=== PATIENT | male | born 1995 | race Caucasian/White ===

== ENCOUNTER 2016-09-14 01:56 | Emergency (ER) | payer BC, MEDICAID ==
[~2016-09-14] VITALS: Ht 182.9 cm; Wt 144.0 kg
--- OUTSIDE RECORDS SUMMARY | 2016-09-14 02:00 | XMS REPORT | Continuity of Care Document ---
Author Author [facility] Address Unknown Phone Unavailable Allergies Medications Problems Date Dx Coded Attending Type Code Diagnosis Diagnosed By 05/02/2014 WILGERS, JHONY L SUPERVISOR DRAWING Ot 530.81 05/02/2014 WILGERS, JHONY L SUPERVISOR DRAWING Ot 787.01 05/02/2014 WILGERS, JHONY L SUPERVISOR DRAWING Ot 796.2 05/08/2014 WILGERS, JHONY L SUPERVISOR DRAWING Ot 530.81 05/08/2014 WILGERS, JHONY L SUPERVISOR DRAWING Ot 787.01 05/08/2014 WILGERS, JHONY L SUPERVISOR DRAWING Ot 796.2 06/29/2014 WILGERS, JHONY L SUPERVISOR DRAWING Ot 530.81 06/29/2014 WILGERS, JHONY L SUPERVISOR DRAWING Ot 787.01 06/29/2014 WILGERS, JHONY L SUPERVISOR DRAWING Ot 796.2 07/27/2014 WILGERS, JHONY L SUPERVISOR DRAWING Ot 530.81 07/27/2014 WILGERS, JHONY L SUPERVISOR DRAWING Ot 787.01 07/27/2014 WILGERS, JHONY L SUPERVISOR DRAWING Ot 796.2 08/22/2014 WILGERS, JHONY L SUPERVISOR DRAWING Ot 530.81 08/22/2014 WILGERS, JHONY L SUPERVISOR DRAWING Ot 787.01 08/22/2014 WILGERS, JHONY L SUPERVISOR DRAWING Ot 796.2 08/22/2014 Ot 780.79 08/22/2014 Ot V77.91 08/26/2014 WILGERS, JHONY L SUPERVISOR DRAWING Ot 530.81 08/26/2014 WILGERS, JHONY L SUPERVISOR DRAWING Ot 787.01 08/26/2014 WILGERS, JHONY L SUPERVISOR DRAWING Ot 796.2 08/26/2014 Ot 780.79 08/26/2014 Ot V77.91 09/10/2014 WILGERS, JHONY L SUPERVISOR DRAWING Ot 786.2 09/10/2014 WILGERS, JHONY L SUPERVISOR DRAWING Ot 786.2 10/18/2014 WILGERS, JHONY L SUPERVISOR DRAWING Ot 530.81 10/18/2014 WILGERS, JHONY L SUPERVISOR DRAWING Ot 787.01 10/18/2014 [facility] JH[facility] SUPERVISOR DRAWING Ot 796.2 10/18/2014 Ot 780.79 10/18/2014 Ot V77.91 10/18/2014 [facility], JHONY L SUPERVISOR DRAWING Ot 786.2 10/18/2014 [facility], JHONY L SUPERVISOR DRAWING Ot 786.2 11/09/2014 KENISHA ONEILL, MIKAEL R Ot 928.20 11/09/2014 KENISHA ONEILL, MIKAEL R Ot 928.21 11/09/2014 KENISHA ONEILL, MIKAEL R Ot E928.9 11/19/2014 [facility], JHONY L SUPERVISOR DRAWING Ot 530.81 11/19/2014 [facility], JHONY L SUPERVISOR DRAWING Ot 787.01 11/19/2014 [facility], JHONY L SUPERVISOR DRAWING Ot 796.2 11/19/2014 Ot 780.79 11/19/2014 Ot V77.91 11/19/2014 [facility], JHONY L SUPERVISOR DRAWING Ot 786.2 11/19/2014 [facility], JHONY L SUPERVISOR DRAWING Ot 786.2 11/19/2014 KENISHA ONEILL, MIKAEL R Ot 928.20 11/19/2014 KENISHA ONEILL, MIKAEL R Ot 928.21 11/19/2014 KENISHA ONEILL, MIKAEL R Ot E928.9 11/26/2014 KENISHA ONEILL, MIKAEL R Ot 719.47 11/26/2014 KENISHA ONEILL, MIKAEL R Ot 729.5 11/26/2014 KENISHA ONEILL, MIKAEL R Ot 924.20 11/26/2014 KENISHA ONEILL, MIKAEL R Ot 924.21 11/26/2014 KENISHA ONEILL, MIKAEL R Ot E928.9 01/21/2015 [facility], JHONY L SUPERVISOR DRAWING Ot 530.81 01/21/2015 [facility], JHONY L SUPERVISOR DRAWING Ot 787.01 01/21/2015 [facility], JHONY L SUPERVISOR DRAWING Ot 796.2 01/21/2015 Ot 780.79 01/21/2015 Ot V77.91 01/21/2015 [facility] JHONY L SUPERVISOR DRAWING Ot 786.2 01/21/2015 [facility], JHONY L SUPERVISOR DRAWING Ot 786.2 01/21/2015 KENISHA ONEILL, MIKAEL [place] Ot 928.20 01/21/2015 KENISHA ONEILL, MIKAEL [place] Ot 928.21 01/21/2015 KENISHA ONEILL, MIKAEL [place] Ot E928.9 01/21/2015 KENISHA ONEILL, MIKAEL [place] Ot 719.47 01/21/2015 KENISHA ONEILL, MIKAEL [place] Ot 729.5 01/21/2015 KENISHA ONEILL, MIKAEL [place] Ot 924.20 01/21/2015 KENISHA ONEILL, MIKAEL [place] Ot 924.21 01/21/2015 KENISHA ONEILL, MIKAEL [place] Ot E928.9 02/12/2015 KENISHA ONEILL, MIKAEL [place] Ot 719.47 02/12/2015 KENISHA ONEILL, MIKAEL [place] Ot 729.5 02/12/2015 KENISHA ONEILL, MIKAEL [place] Ot 924.20 02/12/2015 KENISHA ONEILL, MIKAEL [place] Ot 924.21 02/12/2015 KENISHA ONEILL, MIKAEL Parham Ot E928.9 08/03/2015 JHONY GORE L SUPERVISOR DRAWING Ot 530.81 08/03/2015 [facility] SUPERVISOR DRAWING Ot 787.01 08/03/2015 [facility] JHONY L SUPERVISOR DRAWING Ot 796.2 08/03/2015 Ot 780.79 08/03/2015 Ot V77.91 08/03/2015 [facility] JHONY L SUPERVISOR DRAWING Ot 786.2 08/03/2015 [facility] JHONY L SUPERVISOR DRAWING Ot 786.2 08/03/2015 KENISHA ONEILL, MIKAEL [place] Ot 928.20 08/03/2015 KENISHA ONEILL, MIKAEL [place] Ot 928.21 08/03/2015 KENISHA ONEILL, MIKAEL [place] Ot E928.9 01/31/2016 [facility] JHONY L SUPERVISOR DRAWING Ot 530.81 ESOPHAGEAL REFLUX 01/31/2016 [facility] JHONY L SUPERVISOR DRAWING Ot 787.01 NAUSEA WITH VOMITING 01/31/2016 [facility] JHONY L SUPERVISOR DRAWING Ot 796.2 ELEV BL PRES W/O HYPERTN 01/31/2016 Ot 780.79 OTH MALAISE FATIGUE 01/31/2016 Ot V77.91 SCREEN LIPOID DISORDERS 01/31/2016 [facility] JHONY L SUPERVISOR DRAWING Ot 786.2 COUGH 01/31/2016 [facility] JHONY Pat SUPERVISOR DRAWING Ot 786.2 COUGH 01/31/2016 KENISHA ONEILL, MIKAEL [place]ham Ot 928.20 CRUSHING INJURY FOOT 01/31/2016 MIKAEL DE MD Ot 928.21 CRUSHING INJURY ANKLE 01/31/2016 MIKAEL DE MD Ot E928.9 ACCIDENT NOS 05/11/2016 JHONY GORE SUPERVISOR DRAWING Ot 530.81 ESOPHAGEAL REFLUX 05/11/2016 JHONY GORE SUPERVISOR DRAWING Ot 787.01 NAUSEA WITH VOMITING 05/11/2016 JHONY GORE SUPERVISOR DRAWING Ot 796.2 ELEV BL PRES W/O HYPERTN 05/11/2016 Ot 780.79 OTH MALAISE FATIGUE 05/11/2016 Ot V77.91 SCREEN LIPOID DISORDERS 05/11/2016 JHONY GORE Pat SUPERVISOR DRAWING Ot 786.2 COUGH 05/11/2016 JHONY GORE Pat SUPERVISOR DRAWING Ot 786.2 COUGH 05/11/2016 MIKAEL DE MD Ot 928.20 CRUSHING INJURY FOOT 05/11/2016 MIKAEL DE MD Ot 928.21 CRUSHING INJURY ANKLE 05/11/2016 MIKAEL DE MD Ot E928.9 ACCIDENT NOS 05/26/2016 JHONY GORE SUPERVISOR DRAWING Ot 530.81 ESOPHAGEAL REFLUX 05/26/2016 JHONY GORE SUPERVISOR DRAWING Ot 787.01 NAUSEA WITH VOMITING 05/26/2016 JHONY GORE SUPERVISOR DRAWING Ot 796.2 ELEV BL PRES W/O HYPERTN 05/26/2016 Ot 780.79 OTH MALAISE FATIGUE 05/26/2016 Ot V77.91 SCREEN LIPOID DISORDERS 05/26/2016 JHONY GORE Pat SUPERVISOR DRAWING Ot 786.2 COUGH 05/26/2016 TG[facility] JHONY Pat SUPERVISOR DRAWING Ot 786.2 COUGH 05/26/2016 MIKAEL DE MD Ot 928.20 CRUSHING INJURY FOOT 05/26/2016 MIKAEL DE MD Ot 928.21 CRUSHING INJURY ANKLE 05/26/2016 MIKAEL DE MD Ot E928.9 ACCIDENT NOS Procedures Results Encounters ACCT No. Visit Date/Time Discharge Status Pt. Type Provider Facility Loc./Unit Complaint [id number] 11/19/2014 12:08:00 2014 23:59:59 [facility] Outpatient KENISHA ONEILL, MIKAEL Parham [facility] [id number] 10/18/2014 13:49:00 2014 23:59:59 CLS Outpatient KENISHA ONEILL, [facility] RAD [id number] 08/22/2014 10:15:00 2014 23:59:59 CLS Outpatient [facility] LAB LAB DROP OFF [id number] 08/22/2014 09:52:00 2014 23:59:59 CLS Outpatient [facility] RAD [id number] 04/19/2014 11:52:00 2013 11:52:00 CAN Preadmit [facility] LAB DROP OFF [facility] [id number] 04/17/2014 16:00:00 2013 23:59:59 CLS Outpatient [facility] LAB LAB DROP OFF BY DR COLINDRES [id number] 07/27/2014 16:00:00 Document Registration
--- OUTSIDE RECORDS SUMMARY | 2016-09-14 02:05 | XMS REPORT | Continuity of Care Document ---
Author Author [facility] Address Unknown Phone Unavailable Allergies Medications Problems Date Dx Coded Attending Type Code Diagnosis Diagnosed By 05/02/2014 WILGERS, JHONY L HAND [employer] MAKER Ot 530.81 05/02/2014 WILGERS, JHONY L HAND [employer] MAKER Ot 787.01 05/02/2014 WILGERS, JHONY L HAND [employer] MAKER Ot 796.2 05/08/2014 WILGERS, JHONY L HAND [employer] MAKER Ot 530.81 05/08/2014 WILGERS, JHONY L HAND [employer] MAKER Ot 787.01 05/08/2014 WILGERS, JHONY L HAND [employer] MAKER Ot 796.2 06/29/2014 WILGERS, JHONY L HAND [employer] MAKER Ot 530.81 06/29/2014 WILGERS, JHONY L HAND [employer] MAKER Ot 787.01 06/29/2014 WILGERS, JHONY L HAND [employer] FOOD MAKER Ot 796.2 07/27/2014 WILGERS, JHONY L HAND [employer] FOOD MAKER Ot 530.81 07/27/2014 WILGERS, JHONY L HAND [employer] FOOD MAKER Ot 787.01 07/27/2014 WILGERS, JHNOY L HAND [employer]OD MAKER Ot 796.2 08/22/2014 WILGERS, JHONY L HAND [employer] MAKER Ot 530.81 08/22/2014 WILGERS, JHONY L HAND [employer] MAKER Ot 787.01 08/22/2014 WILGERS, JHONY L HAND [employer]OD MAKER Ot 796.2 08/22/2014 Ot 780.79 08/22/2014 Ot V77.91 08/26/2014 WILGERS, JHONY L HAND [employer] MAKER Ot 530.81 08/26/2014 WILGERS, JHONY L HAND [employer] FO[employer] MAKER Ot 787.01 08/26/2014 WILGERS, JHONY L HAND [employer] FOOD MAKER Ot 796.2 08/26/2014 Ot 780.79 08/26/2014 Ot V77.91 09/10/2014 WILGERS, JHONY L HAND [employer] MAKER Ot 786.2 09/10/2014 WILGERS, JHONY L HAND [employer] MAKER Ot 786.2 10/18/2014 WILGERS, JHONY L HAND [employer] MAKER Ot 530.81 10/18/2014 WILGERS, JHONY L HAND [employer] FOOD MAKER Ot 787.01 10/18/2014 [facility] JHONY L HAND [employer] MAKER Ot 796.2 10/18/2014 Ot 780.79 10/18/2014 Ot V77.91 10/18/2014 [facility], JHONY L HAND [employer] FOOD MAKER Ot 786.2 10/18/2014 [facility], JHONY L HAND [employer] FOOD MAKER Ot 786.2 11/09/2014 KENISHA ONEILL, MIKAEL R Ot 928.20 11/09/2014 KENISHA ONEILL, MIKAEL R Ot 928.21 11/09/2014 KENISHA ONEILL, MIKAEL R Ot E928.9 11/19/2014 [facility], JHONY L HAND [employer] MAKER Ot 530.81 11/19/2014 [facility], JHONY L HAND [employer] FOOD MAKER Ot 787.01 11/19/2014 [facility], JHONY L HAND [employer] FOOD MAKER Ot 796.2 11/19/2014 Ot 780.79 11/19/2014 Ot V77.91 11/19/2014 [facility], JHONY L HAND [employer] FOOD MAKER Ot 786.2 11/19/2014 [facility], JHONY L HAND [employer] FOOD MAKER Ot 786.2 11/19/2014 KENISHA ONEILL, MIKAEL R Ot 928.20 11/19/2014 KENISHA ONEILL, MIKAEL R Ot 928.21 11/19/2014 KENISHA ONEILL, MIKAEL R Ot E928.9 11/26/2014 KENISHA ONEILL, MIKAEL R Ot 719.47 11/26/2014 KENISHA ONEILL, MIKAEL R Ot 729.5 11/26/2014 KENISHA ONEILL, MIKAEL R Ot 924.20 11/26/2014 KENISHA ONEILL, MIKAEL R Ot 924.21 11/26/2014 KENISHA ONEILL, MIKAEL R Ot E928.9 01/21/2015 [facility], JHONY L HAND [employer] MAKER Ot 530.81 01/21/2015 [facility], JHONY L HAND [employer] FOOD MAKER Ot 787.01 01/21/2015 [facility], JHONY L HAND [employer] MAKER Ot 796.2 01/21/2015 Ot 780.79 01/21/2015 Ot V77.91 01/21/2015 [facility] JHONY L HAND [employer] MAKER Ot 786.2 01/21/2015 [facility], JHONY L HAND [employer] MAKER Ot 786.2 01/21/2015 KENISHA ONEILL, MIKAEL [place] Ot 928.20 01/21/2015 KENISHA ONEILL, MIKAEL [place] Ot 928.21 01/21/2015 KENISHA ONEILL, MIKAEL [place] Ot E928.9 01/21/2015 KENISHA ONEILL, MIKAEL [place] Ot 719.47 01/21/2015 KENISHA ONEILL, MIKAEL [place] Ot 729.5 01/21/2015 KENISHA ONEILL, MIKAEL [place] Ot 924.20 01/21/2015 KEINSHA ONEILL, MIKAEL [place]ham Ot 924.21 01/21/2015 KENISHA ONEILL, MIKAEL [place] Ot E928.9 02/12/2015 KENISHA ONEILL, MIKAEL [place] Ot 719.47 02/12/2015 KENISHA ONEILL, MIKAEL [place] Ot 729.5 02/12/2015 KENISHA ONEILL, MIKAEL Parham Ot 924.20 02/12/2015 KENISHA ONEILL, MIKAEL [place]ham Ot 924.21 02/12/2015 KENISHA ONEILL, MIKAEL Parham Ot E928.9 08/03/2015 JHONY GORE L HAND [employer] MAKER Ot 530.81 08/03/2015 [facility] HAND [employer] MAKER Ot 787.01 08/03/2015 [facility] JHON[facility] HAND [employer] MAKER Ot 796.2 08/03/2015 Ot 780.79 08/03/2015 Ot V77.91 08/03/2015 [facility] JHON[facility] HAND [employer] MAKER Ot 786.2 08/03/2015 [facility] JHONY L HAND [employer] MAKER Ot 786.2 08/03/2015 KENISHA ONEILL, MIKAEL [place]ham Ot 928.20 08/03/2015 KENISHA ONEILL, MIKAEL [place] Ot 928.21 08/03/2015 KENISHA ONEILL, MIKAEL [place] Ot E928.9 01/31/2016 [facility] JHONY L HAND [employer] MAKER Ot 530.81 ESOPHAGEAL REFLUX 01/31/2016 [facility] JHONY L HAND [employer] MAKER Ot 787.01 NAUSEA WITH VOMITING 01/31/2016 [facility] JHONY L HAND [employer] MAKER Ot 796.2 ELEV BL PRES W/O HYPERTN 01/31/2016 Ot 780.79 OTH MALAISE FATIGUE 01/31/2016 Ot V77.91 SCREEN LIPOID DISORDERS 01/31/2016 BAO JHONY L HAND [employer] MAKER Ot 786.2 COUGH 01/31/2016 [facility] JHONY Pat HAND [employer] MAKER Ot 786.2 COUGH 01/31/2016 KENISHA ONEILL, MIKAEL Parham Ot 928.20 CRUSHING INJURY FOOT 01/31/2016 MIKAEL DE MD Ot 928.21 CRUSHING INJURY ANKLE 01/31/2016 MIKAEL DE MD Ot E928.9 ACCIDENT NOS 05/11/2016 JHONY GORE HAND [employer] MAKER Ot 530.81 ESOPHAGEAL REFLUX 05/11/2016 JHONY GORE HAND [employer] MAKER Ot 787.01 NAUSEA WITH VOMITING 05/11/2016 JHONY GORE HAND [employer] MAKER Ot 796.2 ELEV BL PRES W/O HYPERTN 05/11/2016 Ot 780.79 OTH MALAISE FATIGUE 05/11/2016 Ot V77.91 SCREEN LIPOID DISORDERS 05/11/2016 JHONY GORE Pat HAND [employer] MAKER Ot 786.2 COUGH 05/11/2016 JHONY GORE Pat HAND [employer] MAKER Ot 786.2 COUGH 05/11/2016 MIKAEL DE MD Ot 928.20 CRUSHING INJURY FOOT 05/11/2016 MIKAEL DE MD Ot 928.21 CRUSHING INJURY ANKLE 05/11/2016 MIKAEL DE MD Ot E928.9 ACCIDENT NOS 05/26/2016 JHONY GORE HAND [employer] MAKER Ot 530.81 ESOPHAGEAL REFLUX 05/26/2016 JHONY GORE HAND [employer] MAKER Ot 787.01 NAUSEA WITH VOMITING 05/26/2016 JHONY GORE HAND [employer] MAKER Ot 796.2 ELEV BL PRES W/O HYPERTN 05/26/2016 Ot 780.79 OTH MALAISE FATIGUE 05/26/2016 Ot V77.91 SCREEN LIPOID DISORDERS 05/26/2016 JHONY GORE Pat HAND [employer] MAKER Ot 786.2 COUGH 05/26/2016 TGJOLENE JHONY Pat HAND [employer] MAKER Ot 786.2 COUGH 05/26/2016 MIKAEL DE MD Ot 928.20 CRUSHING INJURY FOOT 05/26/2016 MKIAEL DE MD Ot 928.21 CRUSHING INJURY ANKLE 05/26/2016 MIKAEL DE MD Ot E928.9 ACCIDENT NOS Procedures Results Encounters ACCT No. Visit Date/Time Discharge Status Pt. Type Provider Facility Loc./Unit Complaint [id number] 11/19/2014 12:08:00 2014 23:59:59 [facility] Outpatient KENISHA ONEILL, MIKAEL Parham [facility] [id number] 10/18/2014 13:49:00 2014 23:59:59 CLS Outpatient KENISHA ONEILL, [facility] RAD [id number] 08/22/2014 10:15:00 2014 23:59:59 CLS Outpatient [facility] LAB LAB DROP OFF [id number] 08/22/2014 09:52:00 2014 23:59:59 CLS Outpatient [facility] RAD [id number] 04/19/2014 11:52:00 2013 11:52:00 CAN Preadmit [facility] LAB DROP OFF [facility] [id number] 04/17/2014 16:00:00 2013 23:59:59 CLS Outpatient [facility] LAB LAB DROP OFF BY DR COLINDRES [id number] 07/27/2014 16:00:00 Document Registration
[2016-09-14 02:12] VITALS: BP 144/84
== END 2016-09-14 02:51 | disposition home or self-care (01) ==
LOC: ED 02:01
DX: Z71.1 Person with feared health complaint in whom no diagnosis is made (principal)
CPT/HCPCS: 99281; 99283

== ENCOUNTER → 2016-10-02 | Outpatient (REF) | payer BC, MEDICAID ==
[2016-10-02 15:14] LABS: BASOPHILS % (AUTO) 1 % (0-2); EOSINOPHILS # (AUTO) 0.1 10^3uL; EOSINOPHILS % (AUTO) 1 % (0-4); LYMPHOCYTES # (AUTO) 2.4 X10^3; MEAN CORPUSCULAR HEMOGLOBIN 28.5 PG (26.0-34.0); MEAN CORPUSCULAR HGB CONC 34.7 g/dL (31.0-37.0); MEAN CORPUSCULAR VOLUME 82 FL (80-100); MONOCYTES % (AUTO) 11 % (3-11); NEUTROPHILS # (AUTO) 5.1 X10^3; NEUTROPHILS % (AUTO) 59 % (51-67); PLATELET COUNT 274 10^3uL (150-450)
[2016-10-02 15:20] LABS: ALBUMIN 4.9 g/dL (3.4-5.0); ALKALINE PHOSPHATASE 90 U/L (38-126); ANION GAP 17.5 MEQ/L (3-15); BUN/CREATININE RATIO 15 (10-20); CALCULATED IONIZED CALCIUM 4.3 mg/dL (3.8-4.6); LIPASE* 37 U/L (23-300); TOTAL PROTEIN 7.7 g/dL (6.4-8.5)
[2016-10-02 15:21] LABS: AMYLASE* < 30 U/L (25-115)
== END ==
LOC: LAB 14:57
PROVIDERS: ATTEND Nurse Practitioner Family
DX: R10.84 Generalized abdominal pain (principal); K92.0 Hematemesis
CPT/HCPCS: 80053; 82150; 83690; 85025

== ENCOUNTER → 2016-10-02 | Outpatient (CLI) | payer BC, MEDICAID ==
--- NOTE | 2016-10-02 15:45 | Diagnostic Imaging Report ---
INDICATION: Hematemesis x1 week. FINDINGS: Portable chest shows lungs to be clear. Heart is upper limits of normal. There is no free air into the diaphragm. Upright supine abdomen shows nonspecific bowel gas pattern. Scattered air noted in the stomach, small bowel and colon with no distended loops of bowel. There does not appear to be any sign of constipation. There is no stool in the rectum. No organomegaly. No pathologic calcification. IMPRESSION: Nonspecific abdomen. Cannot exclude mild adynamic ileus. No obstruction or distended bowel loops noted. Dictated by: Dictated on workstation # [id number]
== END ==
LOC: RAD 14:34
PROVIDERS: ATTEND Family Medicine
DX: R10.84 Generalized abdominal pain (principal)
CPT/HCPCS: 74022